=== PATIENT | male | born 1955 | race Caucasian/White ===

== ENCOUNTER 2017-05-02 08:22 | Emergency (ER) | payer BC, OTHER ==
[2017-05-02] MEDS ORDERED: Ondansetron HCl/PF 4 MG/2 ML Vial ONE (09:07)
[2017-05-02 09:33] LABS: #Eosinphils 0.2 thou/uL (0.0-0.7); #Lymphocytes 1.6 thou/uL (1.20-3.40); #Monocytes 0.6 thou/uL (0.11-0.59); #Neutrophils 5.1 thou/uL (1.40-6.50); %Basophils 0.5 % (0.0-1.0); %Eosinophils 2.8 % (0.0-10.0); %Lymphocytes 21.1 % (21.0-51.0); %Monocytes 7.3 % (0.0-10.0); Hematocrit 47.1 % (42.0-52.0); Mean Platelet Volume 8.4 fL (7.4-10.4); Red Blood Cell (RBC) Count 5.36 mill/uL (4.70-6.10); White Blood Cell (WBC) Count 7.5 thou/uL (4.8-10.8)
[2017-05-02 09:47] LABS: ALT (SGPT) 31 U/L (8-55); AST (SGOT) 19 U/L (5-34); Alkaline Phosphatase 126 U/L (40-150); Anion Gap 10 mmol/L (10-20); BUN (Urea Nitrogen) 13 mg/dL (8.4-25.7); Bilirubin, Total 1.1 mg/dL (0.2-1.2); CK (CPK) 131 U/L (30-200); Calc. Creatinine Clearance 0 mL/min (70-130); Calcium 9.4 mg/dL (7.8-10.44); Carbon Dioxide 27 mmol/L (22-29); Chloride 103 mmol/L (98-107); Estimated GFR-MDRD Greater than 90; Globulin 2.9 g/dL (2.4-3.5); Lipase 24 U/L (8-78); Magnesium 2.2 mg/dL (1.6-2.6)
[2017-05-02 09:50] LABS: Troponin I Less than 0.010 ng/mL (< 0.028)
[2017-05-02 10:16] LABS: Bilirubin Negative (Negative); Blood, Urine Negative (Negative); Glucose, Urine (Dipstick) Negative (Negative); Ketone, Urine Negative (Negative); Nitrite Negative (Negative); Protein, Urine (Dipstick) Negative (Neg-Trace)
[2017-05-02 10:24] LABS: Bacteria/HPF None Seen HPF (None Seen); Hyaline Casts/LPF 0-3 HYALINE CAST LPF (0-3 Hyaline); RBC/HPF 0-3 HPF (0-3); Squamous Epithelial 0-3 HPF (0-3); WBC/HPF 0-3 HPF (0-3)
--- NOTE | 2017-05-02 10:28 | RAD ---
PORTABLE AP CHEST: Date: 05-02-17 History: Weakness, high blood pressure. Comparison: 08-15-16 FINDINGS: Cardiac silhouette is magnified by projection. Pulmonary vasculature is within normal limits. Lungs are clear. There has been no interval change from prior study. IMPRESSION: No acute cardiopulmonary process. POS: [facility]
== END 2017-05-02 11:34 | disposition home or self-care (01) ==
LOC: ERS 08:22
DX: I10 Essential (primary) hypertension (principal); E11.9 Type 2 diabetes mellitus without complications; I25.2 Old myocardial infarction; Z79.82 Long term (current) use of aspirin; Z79.899 Other long term (current) drug therapy
CPT/HCPCS: 36416; 71010; 80053; 81003; 81015; 82550; 82553; 83690; 83735; 83880; 84443; 84484; 85025; 93005; 96374; J2405

== ENCOUNTER 2017-10-02 20:01 | Observation (INO) | payer BC ==
[2017-10-02 20:39] LABS: #Eosinphils 0.4 thou/uL (0.0-0.7); #Lymphocytes 2.2 thou/uL (1.20-3.40); #Monocytes 0.7 thou/uL (0.11-0.59); #Neutrophils 5.3 thou/uL (1.40-6.50); %Basophils 0.4 % (0.0-1.0); %Eosinophils 4.1 % (0.0-10.0); %Lymphocytes 25.5 % (21.0-51.0); %Monocytes 8.5 % (0.0-10.0); %Neutrophils 61.5 % (42.0-75.0); Hemoglobin 14.9 g/dL (14.0-18.0); Mean Corpuscular HGB CONC 33.6 g/dL (32.0-36.0); Mean Corpuscular Hemoglobin 28.8 pg (27.0-31.0); Mean Corpuscular Volume 85.7 fl (80.0-94.0); Mean Platelet Volume 7.6 fL (7.4-10.4); Platelet Count 166 thou/uL (130-400); RBC Distribution Width 13.4 % (11.5-14.5); Red Blood Cell (RBC) Count 5.16 mill/uL (4.70-6.10); White Blood Cell (WBC) Count 8.5 thou/uL (4.8-10.8)
[2017-10-02 21:02] LABS: ALT (SGPT) 31 U/L (8-55); AST (SGOT) 18 U/L (5-34); Albumin 4.2 g/dL (3.5-5.0); Alkaline Phosphatase 123 U/L (40-150); Anion Gap 12 mmol/L (10-20); BUN (Urea Nitrogen) 16 mg/dL (8.4-25.7); Bilirubin, Total 1.1 mg/dL (0.2-1.2); CK (CPK) 88 U/L (30-200); Calc. Creatinine Clearance 0 mL/min (70-130); Calcium 9.3 mg/dL (7.8-10.44); Carbon Dioxide 26 mmol/L (22-29); Chloride 104 mmol/L (98-107); Estimated GFR-MDRD Greater than 90; Globulin 2.6 g/dL (2.4-3.5); Glucose 102 mg/dL (70-105); Lipase 32 U/L (8-78); Potassium 4.1 mmol/L (3.5-5.1); Protein, Total 6.8 g/dL (6.0-8.3); Sodium 138 mmol/L (136-145)
[2017-10-02 21:03] LABS: Troponin I Less than 0.010 ng/mL (< 0.028)
--- NOTE | 2017-10-02 21:54 | RAD ---
RADIOGRAPH CHEST 1 VIEW: HISTORY: 62-year-old male with acute chest pain. FINDINGS: There are no air space densities, pulmonary edema, pneumothorax, or cardiomegaly. The lateral costop hrenic angles are sharp. IMPRESSION: No acute cardiopulmonary findings. rg POS: [facility]
[2017-10-02 23:39] LABS: Troponin I Less than 0.010 ng/mL (< 0.028)
[2017-10-03 01:10] VITALS: BMI 42.0
[2017-10-03 02:42] LABS: Troponin I Less than 0.010 ng/mL (< 0.028)
[2017-10-03] MEDS: Sodium Chloride 0.9% 1,000 ML IV SCH ×2 (05:19→05:45)
[2017-10-03 06:06] LABS: #Eosinphils 0.4 thou/uL (0.0-0.7); #Lymphocytes 1.7 thou/uL (1.20-3.40); #Monocytes 0.6 thou/uL (0.11-0.59); #Neutrophils 3.4 thou/uL (1.40-6.50); %Basophils 0.6 % (0.0-1.0); %Eosinophils 5.9 % (0.0-10.0); %Lymphocytes 28.2 % (21.0-51.0); %Monocytes 9.5 % (0.0-10.0); %Neutrophils 55.8 % (42.0-75.0); Hemoglobin 14.4 g/dL (14.0-18.0); Mean Corpuscular HGB CONC 32.1 g/dL (32.0-36.0); Mean Corpuscular Hemoglobin 27.5 pg (27.0-31.0); Mean Corpuscular Volume 85.6 fl (80.0-94.0); Mean Platelet Volume 7.6 fL (7.4-10.4); Platelet Count 151 thou/uL (130-400); RBC Distribution Width 13.4 % (11.5-14.5); Red Blood Cell (RBC) Count 5.26 mill/uL (4.70-6.10); White Blood Cell (WBC) Count 6.1 thou/uL (4.8-10.8)
[2017-10-03 06:23] LABS: Anion Gap 11 mmol/L (10-20); BUN (Urea Nitrogen) 15 mg/dL (8.4-25.7); Calc. Creatinine Clearance 202 mL/min (70-130); Calcium 8.8 mg/dL (7.8-10.44); Carbon Dioxide 25 mmol/L (22-29); Cardiac Risk 4.8 (Less than 4.5); Chloride 105 mmol/L (98-107); Cholesterol 140 mg/dl (< 200 Desired); Estimated GFR-MDRD Greater than 90; Glucose 132 mg/dL (70-105); HDL Cholesterol 29 mg/dL (>60 Neg Risk); LDL Cholesterol, Calculated 65 mg/dL; Potassium 4.1 mmol/L (3.5-5.1); Sodium 137 mmol/L (136-145); Triglycerides 230 mg/dL (Less than 150)
--- NOTE | 2017-10-03 08:36 | HP ---
PRIMARY CARE PHYSICIAN: Dr. Salbador Varner DRIP PUMPER: Dr. Godinez CHIEF COMPLAINT: Chest pain. HISTORY OF PRESENT ILLNESS: This is a 70-year-old male with a known history of coronary artery disease, type 2 diabetes, hyperlipidemia, obesity who comes in with a chief complaint of centralized chest pain, mostly as chest pressure, substernally accompanied by nausea. This occurred twice, 20 minutes on the day prior to admission and an hour on the day of admission. At the time of my evaluation, the patient is currently chest pain free and denies any nausea. He states that he has had similar episodes in the past that were associated with coronary artery disease. REVIEW OF SYSTEMS: As per HPI. CONSTITUTIONAL: No recent fevers, chills, significant weight loss or gain that the patient is aware of. HEENT: No new headaches, dizziness or lightheadedness either currently nor with the episode of chest pain and nausea. CARDIOVASCULAR: Please see the HPI as above. The patient describes a substernal chest pressure, nonradiating. No left-sided arm numbness or tingling. No episodes of diaphoresis, but it is accompanied by nausea. He did not otherwise have isolated chest pain without nausea or isolated nausea without chest pain. RESPIRATORY: No recent cough, congestion, sinusitis, postnasal drip or ear pain. GASTROINTESTINAL: Nausea as above, otherwise no emesis. Denies any diarrhea or constipation issues or abdominal pain. GENITOURINARY: Denies any recent issues with dysuria, change in urinary frequency, quantity quality or odor. MUSCULOSKELETAL: Denies any new arthralgias or myalgias or lower extremity swelling. The remainder of review of systems otherwise negative. PAST MEDICAL HISTORY: 1. As per above, significant for coronary artery disease. 2. Type 2 diabetes. 3. Hyperlipidemia. 4. Obesity. 5. Status post percutaneous coronary intervention. 6. Status post tonsillectomy. HOME MEDICATIONS: Aspirin 81 mg p.o. daily, atorvastatin 80 mg p.o. q.p.m., buspirone 10 mg p.o. b.i.d., Valsartan 320 mg p.o. daily. Metoprolol tartrate 50 mg p.o. b.i.d. Isosorbide mononitrate 30 mg p.o. daily, amlodipine 5 mg p.o. daily, clopidogrel bisulfate 75 mg p.o. daily, metformin 1000 mg p.o. b.i.d., Omeprazole 20 mg p.o. daily, nitroglycerin 0.4 mg sublingual p.r.n., Meloxicam 7.5 mg p.o. daily, furosemide 20 mg p.o. daily, Dexilant 60 mg p.o. daily. ALLERGIES: No known drug allergies. FAMILY HISTORY: The patient endorses a family history of coronary artery disease and hypertension. SOCIAL HISTORY: The patient denies any active tobacco, illicit drug use or alcohol use. The patient endorses he wishes to be full code at this point in time. He does not designated medical decision maker at this point in time if he is unable to make his own medical decisions. PHYSICAL EXAMINATION: VITAL SIGNS: Temperature of 97.9, heart rate is 60, respirations 16, satting 100% on room air with blood pressure 151/82. GENERAL: The patient is awake, alert, oriented x3, reasonable historian as outlined above and provides a history as described above, lying in the hospital bed. HEENT: Normocephalic, atraumatic. Equal ocular motions are intact. Moist mucous membranes. CARDIOVASCULAR: S1, S2, soft heart sounds, pulses 2+ bilateral upper extremities, trace to 1+ bilateral lower extremity pitting pedal edema. RESPIRATORY: Reasonable air movement. No wheezes, rales or rhonchi, but clear to auscultation bilaterally. ABDOMEN: Positive bowel sounds. ABDOMEN: Soft, nontender to palpation. NEUROLOGIC: Able to move all 4 extremities independently and self reposition in the bed without difficulty or assistance. LABORATORY DATA AND IMAGING: WBC 8.5, hemoglobin 14.9, hematocrit 44.3, platelets 166. Sodium 138, potassium 4.1, chloride 104, bicarbonate 26, BUN 16 , creatinine 0.73, glucose 102, calcium 9.3, total bilirubin 1.1, AST 18, ALT 31 , alkaline phosphatase 123. Creatinine kinase 88, troponin less than 0.01 x2. Serum protein 6.8, albumin 4.2, lipase 32. 10/02/2017 - Chest x-ray - Impression: "No acute cardiopulmonary findings." ASSESSMENT AND PLAN: 1. This is a 62-year-old male with a known history of coronary artery disease, hypertension, hyperlipidemia, obesity, and type 2 diabetes who presents with a chief complaint of chest pain. We will maintain the patient on telemetry, serial troponins. I appreciate Cardiology consultation. We will keep the patient n.p.o. He has significant risk factors and a personal history of coronary artery disease, which raises his pretest probability of having occlusive coronary artery disease at this point in time. We will resume the patient on medical management as per his home medications. Obtain echocardiogram. 2. Diet: N.p.o. 3. Activity: As tolerated. 4. DVT prophylaxis with enoxaparin. 5. Hypertension, stable. Continue home regimen. 6. Hyperlipidemia, stable. Continue home regimen. 7. Type 2 diabetes, hold home anti-hyperglycemic regimen and utilize sliding scale insulin as the patient has n.p.o. status and will continue to have variable p.o. status. May resume his home regimen once he is back on his home baseline diet. Admit the patient to observation status to telemetry. Thank you for asking me care for the patient. With questions or concerns, please contact me at [facility]. MIMI
[2017-10-03] MEDS: Valsartan 80 MG TAB PO SCH (12:08)
[2017-10-03] MEDS: busPIRone HCl 10 MG TAB PO SCH ×2 (12:08→20:33)
[2017-10-03] MEDS: Heparin 5,000 UNITS/ML VIAL SC SCH ×3 (16:10→20:34)
[2017-10-03] MEDS: Famotidine 40 MG/4 ML VIAL SLOW IVP SCH ×2 (16:11→20:34)
[2017-10-03] MEDS: Metoprolol Tartrate 50 MG TAB PO SCH ×2 (16:12→20:34)
--- NOTE | 2017-10-03 18:38 | PDOC.PN ---
- Subjective Encounter Start Date: 10/03/17 Encounter Start Time: 18:30 Subjective: f/u for CP, CAD and cardiac w/u. Serial troponins negative and Tele/ Ekg -: negative for acute process. No current sx. - Objective Resuscitation Status: Resuscitation Status FULL:Full Resuscitation MAR Reviewed: Yes Vital Signs & Weight: Vital Signs (12 hours) Temp Pulse Resp BP Pulse Ox 10/03/17 14:38 97.8 F 67 16 149/80 H 98 10/03/17 11:22 97.3 F L 70 18 183/93 H 98 10/03/17 07:45 97.4 F L 64 18 10/03/17 07:31 97.4 F L 64 18 144/86 H 98 10/03/17 06:52 100 Weight Weight 276 lb 11.2 oz I&O: 10/02/17 10/03/17 10/04/17 06:59 06:59 06:59 Intake Total 120 Output Total 300 725 Balance -180 -725 Result Diagrams: 10/03/17 05:40 10/03/17 05:41 Additional Labs: Laboratory Tests 10/02/17 10/02/17 10/03/17 20:20 22:50 02:04 Troponin I Less than 0.010 Less than 0.010 Less than 0.010 Triglycerides Cholesterol LDL Cholesterol, Calc HDL Cholesterol 10/03/17 05:41 Troponin I Triglycerides 230 H Cholesterol 140 LDL Cholesterol, Calc 65 HDL Cholesterol 29 Radiology Reviewed by me: Yes (PCXR - neg) EKG Reviewed by me: Yes (Tele - SR) Phys Exam - Physical Examination Constitutional: NAD HEENT: PERRLA, oral pharynx no lesions Neck: no JVD, supple Respiratory: no wheezing, clear to auscultation bilateral Cardiovascular: RRR Gastrointestinal: soft, non-tender, no distention, positive bowel sounds Musculoskeletal: no edema, pulses present Neurological: normal sensation, moves all 4 limbs Psychiatric: A&O x 3 Skin: normal turgor, cap refill <2 seconds Dx/Plan (1) Chest pain Code(s): R07.9 - CHEST PAIN, UNSPECIFIED Status: Acute Comment: Continue ASA 81mg daily, Lipitor and Metoprolol, plan for DESK DIRECTOR in am (2) DM II (diabetes mellitus, type II), controlled Code(s): E11.9 - TYPE 2 DIABETES MELLITUS WITHOUT COMPLICATIONS Status: Chronic Comment: ISS, resume Metformin after DESK DIRECTOR, serial accuchecks (3) Dyslipidemia Code(s): E78.5 - HYPERLIPIDEMIA, UNSPECIFIED Status: Chronic Comment: Continue Lipitor (4) CAD (coronary artery disease) Code(s): I25.10 - ATHSCL HEART DISEASE OF [place] CORONARY ARTERY W/O ANG PCTRS Status: Chronic Qualifiers: Coronary Disease-Associated Artery/Lesion type: [place] artery Comment: s/p PCI 2013, await results of DESK DIRECTOR (5) Morbid obesity with BMI of 40.0-44.9, adult Code(s): E66.01 - MORBID (SEVERE) OBESITY DUE TO EXCESS CALORIES; Z68.41 - BODY MASS INDEX (BMI) 40.0-44.9, ADULT Status: Chronic Comment: Dietary mgmt - Plan out of bed/ambulate, DVT proph w/SCDs Stable overall -: DESK DIRECTOR planned for 10/04/17 -: Continue ASA and Lipitor -: Continue Metoprolol -: 2D echo pending * .
--- NOTE | 2017-10-03 18:42 | CON ---
DATE OF SERVICE: 10/03/2017 REASON FOR CONSULTATION: Chest pain. HISTORY OF PRESENT ILLNESS: Mr. Castillo is a pleasant 62-year-old white gentleman who comes to the hospital for chest pain. He is very well known to myself. He presented originally in 2013 for an inferior LA. He had an occluded mid RCA, which was opened up and drug-eluting stent was placed. He also had balloon angioplasty of the distal RPDA that seem much smaller than what it was later on. He continued to have chest pain a few months later and he was brought back to the catheterization lab where he was found to have just mild in-stent restenosis of the mid RCA stent, but there was severe disease in the RPDA at the place where angioplasty had been done. He received a 2.5 drug- eluting stent in that area with good results. He did well otherwise. He has had several episodes of chest pain since, the last one was about a year ago. He had completely negative troponins. We put him on some antianginal and he has been following up in the office since with no major issues. He states that yesterday he was having a nap and he was woken up from the nap by chest pain, it lasts for about 20 minutes, felt like tightness in the midsternal area. Nothing like what he felt before with his LA. He had a second episode the next day at work, which was Monday. He had a chest pain that lasted for about an hour at that time, so he decided to come in for evaluation. So far, his troponins have been negative. He has been pain free throughout his hospitalization. PAST MEDICAL HISTORY: 1. Coronary artery disease as above. 2. Type 2 diabetes. 3. Hyperlipidemia. 4. Obesity. PAST SURGICAL HISTORY: 1. Status post percutaneous coronary intervention as above. 2. Tonsillectomy. OUTPATIENT MEDICATIONS: Include, 1. Aspirin. 2. Atorvastatin 80 mg q.p.m. 3. BuSpar 10 mg b.i.d. 4. Valsartan 320 mg a day. 5. Metoprolol tartrate 50 mg p.o. b.i.d. 6. Imdur 30 mg a day. 7. Amlodipine 5 mg a day. 8. Clopidogrel 75 mg a day. 9. Metformin 1000 mg p.o. b.i.d. 10. Omeprazole 20 mg a day. 11. Nitroglycerin sublingual. 12. Meloxicam. 13. Furosemide 20 mg a day. 14. Dexilant 60 mg a day. ALLERGIES: No known drug allergies. FAMILY HISTORY: Positive for early coronary artery disease. SOCIAL HISTORY: No alcohol, tobacco or drugs. 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 PHYSICAL EXAMINATION: VITAL SIGNS: Temperature 97.8, pulse 67, respiration rate 16, satting 98% on room air, blood pressure 149/80. GENERAL: Awake, alert, oriented x3, in no distress. HEENT: Normocephalic, atraumatic. NECK: Supple. LUNGS: Lungs are clear, distant. CARDIOVASCULAR: S1, S2, no S3 or S4, no murmurs, no rubs. ABDOMEN: Soft. Positive bowel sounds. EXTREMITIES: No edema. SKIN: Warm and dry. LABORATORY WORK: Reviewed. CBC is unremarkable. Chemistry is unremarkable. Troponins were negative x3. Triglycerides of 230, cholesterol 140, LDL of 65, HDL of 29. Lipase was normal. EKG was reviewed, no ischemic changes. ASSESSMENT AND PLAN: 1. Chest pain: I gave him the choice of repeating a heart catheterization versus just doing a stress test. He would prefer doing a stress test to see if he risk stratifies to a higher risk for heart catheterization. He will plan on keeping him n.p.o. post-midnight and doing a nuclear SPECT tomorrow. Depending on the findings, we will decide how to further risk stratify. 2. Hypertension: Continue home regimen for now. Thank you for letting us participate in the care of your patient. We will follow. MIMI
[2017-10-03] MEDS: Atorvastatin Calcium 40 MG TAB PO SCH (20:33)
[2017-10-04] MEDS: Sodium Chloride 0.9% 1,000 ML IV SCH (02:05)
[2017-10-04] MEDS ORDERED: Nitroglycerin 0.4 MG TAB (25 Tab Bottle) ONE (02:07)
[2017-10-04] MEDS: busPIRone HCl 10 MG TAB PO SCH ×2 (11:44→20:40)
[2017-10-04] MEDS: Valsartan 80 MG TAB PO SCH (11:44)
[2017-10-04] MEDS: Metoprolol Tartrate 50 MG TAB PO SCH ×2 (11:44→20:40)
[2017-10-04] MEDS: Famotidine 40 MG/4 ML VIAL SLOW IVP SCH ×2 (11:45→20:40)
[2017-10-04] MEDS: Heparin 5,000 UNITS/ML VIAL SC SCH ×3 (11:45→20:41)
--- NOTE | 2017-10-04 17:49 | PDOC.CTH ---
Cardiology Progress Note - Subjective He had an episode of chest pain last night. He had his first half of his MPI this morning. - Objective Vital Signs Temp Pulse Resp BP BP Pulse Ox 10/04/17 16:17 98.4 F 67 18 148/82 H 100 10/04/17 07:57 97.3 F L 66 16 158/80 H 99 10/04/17 07:50 97.7 F 73 20 Weight 272 lb 12.8 oz 10/03/17 10/04/17 10/05/17 06:59 06:59 06:59 Intake Total 120 1557 Output Total 300 1675 Balance -180 -118 - Physical Examination General/Neuro: alert & oriented x3, NAD Neck: no JVD present Lungs: CTA, unlabored respirations Heart: RRR Abdomen: NT/ND Extremities: + edema B (trace) - Telemetry Telemetry Rhythm: NSR - Labs Result Diagrams: 10/03/17 05:40 10/03/17 05:41 Troponin/CKMB CK-MB (CK-2) 1.0 ng/mL (0-6.6) 10/02/17 20:20 Troponin I Less than 0.010 ng/mL (< 0.028) 10/03/17 02:04 - Assessment/Plan 1. Chest pain 2. CAD, s/p PCI to RCA and RPDA in the past. 3. HTN 4. Diabetes type II 5. Obesity. PLAN: - Await results of Nuclear MPI.
--- NOTE | 2017-10-04 18:47 | PDOC.PN ---
- Subjective Encounter Start Date: 10/04/17 Encounter Start Time: 18:35 Subjective: f/u for CP, CAD s/p PCI RCA currently on 2-day nuclear POWER TRUCK DRIVER. -: No current CP, SOB. Awaiting nuclear imaging in am. - Objective Resuscitation Status: Resuscitation Status FULL:Full Resuscitation MAR Reviewed: Yes Vital Signs & Weight: Vital Signs (12 hours) Temp Pulse Resp BP BP Pulse Ox 10/04/17 16:17 98.4 F 67 18 148/82 H 100 10/04/17 07:57 97.3 F L 66 16 158/80 H 99 10/04/17 07:50 97.7 F 73 20 Weight Weight 272 lb 12.8 oz I&O: 10/03/17 10/04/17 10/05/17 06:59 06:59 06:59 Intake Total 120 1557 800 Output Total 300 1675 1100 Balance -180 -118 -300 Result Diagrams: 10/03/17 05:40 10/03/17 05:41 Radiology Reviewed by me: Yes (Echo - EF 60-65%, Grade I/III diast dysfxn) EKG Reviewed by me: Yes (Tele - SR 60's) Phys Exam - Physical Examination Constitutional: NAD HEENT: PERRLA, oral pharynx no lesions Neck: no JVD, supple Respiratory: no wheezing, clear to auscultation bilateral Cardiovascular: RRR Gastrointestinal: soft, non-tender, no distention, positive bowel sounds mild LE edema Musculoskeletal: pulses present Neurological: normal sensation, moves all 4 limbs Psychiatric: A&O x 3 Skin: normal turgor, cap refill <2 seconds Dx/Plan (1) Chest pain Code(s): R07.9 - CHEST PAIN, UNSPECIFIED Status: Acute Comment: Continue ASA 81mg daily, Lipitor and Metoprolol, 2-day Cardiolite pending (2) DM II (diabetes mellitus, type II), controlled Code(s): E11.9 - TYPE 2 DIABETES MELLITUS WITHOUT COMPLICATIONS Status: Chronic Comment: ISS, resume Metformin after POWER TRUCK DRIVER, serial accuchecks (3) Dyslipidemia Code(s): E78.5 - HYPERLIPIDEMIA, UNSPECIFIED Status: Chronic Comment: Continue Lipitor (4) CAD (coronary artery disease) Code(s): I25.10 - ATHSCL HEART DISEASE OF [place] CORONARY ARTERY W/O ANG PCTRS Status: Chronic Qualifiers: Coronary Disease-Associated Artery/Lesion type: [place] artery Comment: s/p PCI 2013, await results of POWER TRUCK DRIVER (5) Morbid obesity with BMI of 40.0-44.9, adult Code(s): E66.01 - MORBID (SEVERE) OBESITY DUE TO EXCESS CALORIES; Z68.41 - BODY MASS INDEX (BMI) 40.0-44.9, ADULT Status: Chronic Comment: Dietary mgmt - Plan out of bed/ambulate, DVT proph w/SCDs Stable overall -: Continue ASA 81mg daily -: Continue Lipitor 80mg HS -: Await nuclear imaging for 2-day POWER TRUCK DRIVER protocol -: Saline lock IVF * Likely home 10/05/17
[2017-10-04] MEDS: Atorvastatin Calcium 40 MG TAB PO SCH (20:40)
[2017-10-05] MEDS: Valsartan 80 MG TAB PO SCH (09:32)
[2017-10-05] MEDS: Metoprolol Tartrate 50 MG TAB PO SCH (09:32)
[2017-10-05] MEDS: Heparin 5,000 UNITS/ML VIAL SC SCH (09:32)
[2017-10-05] MEDS: busPIRone HCl 10 MG TAB PO SCH (09:33)
[2017-10-05] MEDS: Famotidine 40 MG/4 ML VIAL SLOW IVP SCH (09:34)
--- NOTE | 2017-10-05 11:32 | NM ---
MYOCARDIAL PERFUSION SCAN WITH SPECT IMAGING: HISTORY: Chest pain. TECHNIQUE/FINDINGS: Examination is performed using 28.1 mCi 99m-technetium sestamibi on the stress and 33 mCi 99m-technet ium sestamibi on the resting images. This shows a fairly normal distribution of the radiopharmaceutic al. No signs of ischemia or scar. WALL MOTION: There is symmetric contractility to the ventricle. LEFT VENTRICULAR EJECTION FRACTION: The calculated left ventricular ejection fraction is 56%. IMPRESSION: Unremarkable myocardial perfusion scan. POS: [facility]
[2017-10-05 12:06] VITALS: BP 146/73; TEMP 98.2
--- NOTE | 2017-10-05 12:22 | DIS ---
DATE OF ADMISSION: 10/03/2017 DATE OF DISCHARGE: 10/05/2017 DISCHARGE DIAGNOSES: 1. Chest pain, non-cardiac. 2. Coronary artery disease, status post cardiac stent to the right RCA, chronic and stable. 3. Hyperlipidemia with primary hypertriglyceridemia. 4. Hypertension, stable. 5. Diabetes mellitus type 2 on oral hypoglycemics. 6. Morbid obesity. CONSULTATION: Dr. Godinez with Cardiology Service. PERTINENT LABORATORY AND X-RAY FINDINGS: Complete metabolic profile within normal limits. Troponin I negative x3. Total cholesterol 140, triglycerides 230, HDL 29 and LDL 65. CBC within normal limit s. Portable chest x-ray dated 10/02/2017 showed no acute cardiopulmonary process. A 2-D transthorac ic echocardiogram dated 10/04/2017 showed an ejection fraction of 60% to 65%. Grade I/III diastolic dysfunction. Cardiolite stress test dated 10/04/2017 with 2-day protocol showed no evidence of rever sible or fixed ischemia with calculated ejection fraction of 56%. HOSPITAL COURSE: The patient was observed on the telemetry unit after initially presenting with ches t pain in the context of known coronary artery disease, status post percutaneous coronary interventio n to the right RCA in 2014. The patient on medical management, presenting with chest pain with seria l troponin negative x3. The patient proceeded with Cardiolite stress testing, 2-day protocol showing no evidence of reversible or fixed ischemia with calculated ejection fraction of 56%. The patient w as evaluated by the Cardiology service with recommendations for nuclear stress testing as the patient opted not to pursue a repeat cardiac catheterization. Telemetry monitoring showed a sinus mechanism without evidence of acute arrhythmia or dysrhythmia, and patient remained clinically stable througho ut the hospital course. On the day of discharge, the patient ambulating without assistance or diffic ulty, tolerating regular oral intake, voiding appropriately with physical exam showing lungs; clear t o auscultation bilaterally and cardiovascular exam showing normal S1 and S2. The patient overall cli nically stable and ready for discharge on 10/05/2017. DISCHARGE MEDICATIONS: 1. Amlodipine 5 mg one tab p.o. daily. 2. Enteric-coated aspirin 81 mg 1 tab p.o. daily. 3. Lipitor 80 mg p.o. at bedtime. 4. BuSpar 10 mg p.o. b.i.d. 5. Plavix 75 mg p.o. daily. 6. Isosorbide mononitrate 30 mg p.o. daily. 7. Metformin 1000 mg p.o. daily. 8. Metoprolol tartrate 50 mg p.o. b.i.d. 9. Nitroglycerin 0.4 mg sublingually q.5 minutes p.r.n. chest pain. 10. Valsartan 320 mg p.o. daily. FOLLOWUP: The patient may follow up with his primary care provider, Dr. Salbador Varner within 7 day s of discharge. The patient may also follow up with Dr. Godinez with [facility] Cardiology Service and to call his office for appointment time and date. CONDITION ON DISCHARGE: Stable. ACTIVITY: Ad kai. DIET: Heart healthy and ADA. CODE STATUS: FULL. DISPOSITION: Home on 10/05/2017.
--- NOTE | 2017-10-25 23:04 | STRESS ---
Acquisition Time: 2017-10-04 09:31:35 Total Exercise Time: 00:04:00 Test Indications: CHEST PAIN Medications: Protocol: ADENOSINE Max HR: 093 BPM 58% of Pred: 160 BPM Max BP: 152/076 mmHG Max Work Load: 1.0 METS RESTING ECG: NORMAL SINUS RHYTHM AT 65 BPM SYMPTOMS: FLUSHED NORMAL BP RESPONSE ECTOPY: NONE ECG STRESS: NO SIGNIFICANT CHANGES INTERPRETATION: NEGATIVE ECG/AWAIT NUCLEAR IMAGES FOR DEFINITIVE DIAGNOSIS Confirmed by Mook FAIRBANKS ([id number]) on 10/25/2017 11:04:08 PM Referred By: MD Sam RODRÍGUEZ Confirmed By:Mook FAIRBANKS
--- NOTE | 2017-11-09 15:04 | EKG ---
Test Reason : CHEST PAIN Blood Pressure : / mmHG Vent. Rate : 069 BPM Atrial Rate : 069 BPM P-R Int : 142 ms QRS Dur : 082 ms QT Int : 396 ms P-R-T Axes : 008 000 039 degrees QTc Int : 424 ms Normal sinus rhythm Normal ECG Confirmed by SHARON PIMENTEL ([id number]), film editor ANASTASIIA PATTON ([id number]) on 11/09/2017 3:03:48 PM Referred By: Confirmed By:SHARON PIMENTEL
== END 2017-10-05 13:32 | disposition home or self-care (01) ==
LOC: ERS 20:01 → 2SW 10-03 00:16
PROVIDERS: ADMIT Internal Medicine; ATTEND Internal Medicine
DX: R07.89 Other chest pain (principal); I25.10 Atherosclerotic heart disease of native coronary artery without angina pectoris; E78.5 Hyperlipidemia, unspecified; E78.1 Pure hyperglyceridemia; I10 Essential (primary) hypertension; I25.2 Old myocardial infarction; E11.9 Type 2 diabetes mellitus without complications; E66.01 Morbid (severe) obesity due to excess calories; Z68.41 Body mass index [BMI] 40.0-44.9, adult; Z79.84 Long term (current) use of oral hypoglycemic drugs; Z79.82 Long term (current) use of aspirin; Z79.02 Long term (current) use of antithrombotics/antiplatelets; Z79.899 Other long term (current) drug therapy; Z95.5 Presence of coronary angioplasty implant and graft; Z90.89 Acquired absence of other organs
CPT/HCPCS: 36415; 71045; 78452; 80048; 80053; 80061; 82553; 83690; 84484; 85025; 90471; 90732; 93005; 93017; 93306; 94760; 96361; 96374; 96376; A9500; G0009; G0378; J0153; J1644

== ENCOUNTER 2017-11-26 22:27 | Emergency (ER) | payer BC ==
[2017-11-26] MEDS ORDERED: Nitroglycerin 0.4 MG TAB (25 Tab Bottle) ONE (23:19)
--- NOTE | 2017-11-26 23:21 | RAD ---
AP VIEW CHEST: Date: 11/26/17 INDICATION: Chest pain. COMPARISON: Prior exam dated 10/02/17. IMPRESSION: No acute cardiopulmonary abnormality. The examination does not appear appreciably changed from the [facility] study. POS: [facility]
[2017-11-26 23:42] LABS: #Eosinphils 0.2 thou/uL (0.0-0.7); #Lymphocytes 0.9 thou/uL (1.20-3.40); #Monocytes 0.6 thou/uL (0.11-0.59); #Neutrophils 8.2 thou/uL (1.40-6.50); %Basophils 0.1 % (0.0-1.0); %Eosinophils 1.9 % (0.0-10.0); %Neutrophils 82.9 % (42.0-75.0); Hemoglobin 14.1 g/dL (14.0-18.0); Mean Corpuscular HGB CONC 33.7 g/dL (32.0-36.0); Mean Corpuscular Hemoglobin 29.7 pg (27.0-31.0); Mean Corpuscular Volume 88.1 fl (80.0-94.0); Mean Platelet Volume 8.3 fL (7.4-10.4); Platelet Count 133 thou/uL (130-400); RBC Distribution Width 13.1 % (11.5-14.5); Red Blood Cell (RBC) Count 4.73 mill/uL (4.70-6.10); White Blood Cell (WBC) Count 9.8 thou/uL (4.8-10.8)
[2017-11-26 23:57] LABS: ALT (SGPT) 30 U/L (8-55); AST (SGOT) 20 U/L (5-34); Alkaline Phosphatase 96 U/L (40-150); Anion Gap 12 mmol/L (10-20); BUN (Urea Nitrogen) 21 mg/dL (8.4-25.7); Calc. Creatinine Clearance 0 mL/min (70-130); Calcium 8.9 mg/dL (7.8-10.44); Carbon Dioxide 24 mmol/L (22-29); Chloride 109 mmol/L (98-107); Estimated GFR-MDRD Greater than 90; Globulin 2.2 g/dL (2.4-3.5); Glucose 112 mg/dL (70-105); Potassium 3.5 mmol/L (3.5-5.1); Protein, Total 6.2 g/dL (6.0-8.3); Sodium 141 mmol/L (136-145)
[2017-11-27] LABS: CKMB 1.2 ng/mL (0-6.6); Troponin I Less than 0.010 ng/mL (< 0.028)
[2017-11-27 02:46] LABS: Troponin I 0.021 ng/mL (< 0.028)
== END 2017-11-27 03:06 | disposition home or self-care (01) ==
LOC: ERS 22:27
DX: R07.9 Chest pain, unspecified (principal); R60.0 Localized edema; I25.2 Old myocardial infarction; I25.10 Atherosclerotic heart disease of native coronary artery without angina pectoris; E11.9 Type 2 diabetes mellitus without complications; I10 Essential (primary) hypertension; Z86.79 Personal history of other diseases of the circulatory system; Z79.82 Long term (current) use of aspirin; Z79.899 Other long term (current) drug therapy; Z79.84 Long term (current) use of oral hypoglycemic drugs
CPT/HCPCS: 36415; 71045; 80053; 82553; 83880; 84484; 85025; 93005; 94760; 96360; 96361

== ENCOUNTER 2018-04-03 09:31 | Emergency (ER) | payer BC ==
[2018-04-03] MEDS ORDERED: Nitroglycerin 0.4 MG TAB (25 Tab Bottle) ONE (09:51)
[2018-04-03 10:28] LABS: #Eosinphils 0.1 thou/uL (0.0-0.7); #Lymphocytes 1.3 thou/uL (1.20-3.40); #Monocytes 0.5 thou/uL (0.11-0.59); #Neutrophils 4.8 thou/uL (1.40-6.50); %Basophils 0.1 % (0.0-1.0); %Eosinophils 1.8 % (0.0-10.0); %Lymphocytes 19.4 % (21.0-51.0); %Monocytes 7.4 % (0.0-10.0); %Neutrophils 71.4 % (42.0-75.0); Hemoglobin 15.2 g/dL (14.0-18.0); Mean Corpuscular HGB CONC 33.2 g/dL (32.0-36.0); Mean Corpuscular Volume 87.4 fL (78.0-98.0); Mean Platelet Volume 8.1 fL (7.4-10.4); Platelet Count 168 thou/uL (130-400); Red Blood Cell (RBC) Count 5.23 mill/uL (4.70-6.10); White Blood Cell (WBC) Count 6.8 thou/uL (4.8-10.8)
[2018-04-03 10:51] LABS: ALT (SGPT) 26 U/L (8-55); AST (SGOT) 21 U/L (5-34); Albumin 4.2 g/dL (3.4-4.8); Alkaline Phosphatase 95 U/L (40-150); Anion Gap 12 mmol/L (10-20); BUN (Urea Nitrogen) 15 mg/dL (8.4-25.7); Bilirubin, Total 1.4 mg/dL (0.2-1.2); CK (CPK) 86 U/L (30-200); Calc. Creatinine Clearance 0 mL/min (70-130); Calcium 9.2 mg/dL (7.8-10.44); Carbon Dioxide 21 mmol/L (23-31); Chloride 108 mmol/L (98-107); Estimated GFR-MDRD Greater than 90; Globulin 2.5 g/dL (2.4-3.5); Glucose 110 mg/dL (80-115); Lipase 25 U/L (8-78); Protein, Total 6.7 g/dL (5.8-8.1); Sodium 137 mmol/L (136-145)
[2018-04-03 10:55] LABS: CKMB 1.3 ng/mL (0-6.6); Troponin I Less than 0.010 ng/mL (< 0.028)
--- NOTE | 2018-04-03 12:56 | RAD ---
PORTABLE AP CHEST: Date: 04/03/18 HISTORY: Chest pain. COMPARISON: 11/26/17. FINDINGS: Cardiac silhouette and pulmonary vasculature within normal limits. Lungs remain clear. There has been no interval change from prior study. IMPRESSION: No acute cardiopulmonary process. POS: [facility]
[2018-04-03] MEDS ORDERED: Lidocaine Viscous Sol 2% 15 ml UD Cup ONE (13:11)
[2018-04-03] MEDS ORDERED: Mag-Al 1200 mg/1200 mg/30 ML UDCUP ONE (13:11)
[2018-04-03 14:13] LABS: Troponin I Less than 0.010 ng/mL (< 0.028)
--- NOTE | 2018-04-07 13:22 | EKG ---
Test Reason : CHEST PAIN Blood Pressure : / mmHG Vent. Rate : 064 BPM Atrial Rate : 064 BPM P-R Int : 156 ms QRS Dur : 086 ms QT Int : 416 ms P-R-T Axes : 017 -06 014 degrees QTc Int : 429 ms Normal sinus rhythm Normal ECG Confirmed by ROBSON LEONE ([id number]), offline editor KYE ORONA ([id number]) on 04/07/2018 1:22:23 PM Referred By: Confirmed By:ROBSON LEONE
== END 2018-04-03 14:38 | disposition home or self-care (01) ==
LOC: ERS 09:31
DX: R07.2 Precordial pain (principal); I25.10 Atherosclerotic heart disease of native coronary artery without angina pectoris; I25.2 Old myocardial infarction; E11.9 Type 2 diabetes mellitus without complications; I10 Essential (primary) hypertension; Z79.899 Other long term (current) drug therapy; Z79.82 Long term (current) use of aspirin
CPT/HCPCS: 36415; 71045; 80053; 82553; 83690; 83880; 84484; 85025; 93005

== ENCOUNTER 2018-04-12 07:47 | Outpatient (CLI) | payer BC ==
--- NOTE | 2018-04-12 10:43 | CT ---
CT CHEST WITH IV CONTRAST: DATE: 04/12/18. PROVIDED CLINICAL HISTORY: Chest pain. FINDINGS: Left thyroid lobe hypodensity with associated calcifications at inferior pole, incompletely character ized. Vascular calcification and coronary stent material are seen. Heart, pericardium, and great vessels a ppear otherwise unremarkable. No evidence for thoracic lymph node enlargement. The airway appears patent and of normal caliber. The lungs are free of significant opacity. No pleural fluid or pneumothorax apparent. The osseous structures demonstrate no concerning osteoblastic or osteolytic lesions. IMPRESSION: 1. No evidence for an acute process. 2. Vascular calcification including coronary calcium. POS: [facility]
[2018-04-12] MEDS ORDERED: Iopamidol 370 76% 100 ML VIAL ONE (14:48)
== END 2018-04-12 07:48 | disposition home or self-care (01) ==
LOC: BICCT 07:47
PROVIDERS: ATTEND Internal Medicine Gastroenterology
DX: R07.9 Chest pain, unspecified (principal); I25.10 Atherosclerotic heart disease of native coronary artery without angina pectoris
CPT/HCPCS: 71260

== ENCOUNTER 2018-04-12 10:17 | Outpatient (CLI) | payer BC ==
--- NOTE | 2018-04-12 11:38 | ULT ---
RIGHT UPPER QUADRANT ULTRASOUND: Date: 04/12/18 HISTORY: Abdominal pain. FINDINGS: The liver demonstrates homogeneous echotexture without focal mass or intrahepatic ductal dilatation. No gallstones, gallbladder wall thickening, or pericholecystic fluid are seen. The common duct measur es 7.0 mm in diameter. Right kidney and visualized portions of the pancreas are unremarkable. No free fluid is seen in Morison's pouch. IMPRESSION: No significant abnormalities are identified. POS: [facility]
== END 2018-04-12 10:18 | disposition home or self-care (01) ==
LOC: ULT 10:17
PROVIDERS: ATTEND Internal Medicine Gastroenterology
DX: R07.9 Chest pain, unspecified (principal)
CPT/HCPCS: 71260; 76705

== ENCOUNTER 2018-10-20 11:52 | Emergency (ER) | payer BC ==
[2018-10-20] MEDS ORDERED: Fentanyl 100 MCG/2 ML VIAL ONE ×2 (12:11→14:30)
--- NOTE | 2018-10-20 13:10 | RAD ---
F2 views left forearm: 10/20/2018 COMPARISON: None HISTORY: Injury, trauma, fall, pain FINDINGS: Soft tissue swelling is seen on the lateral examination along the dorsal aspect of the prox imal forearm near the region of the mid/proximal left ulnar shaft. Question contusion in this region. No associated fracture seen. IMPRESSION: Soft tissue swelling noted with no evidence for acute fracture or dislocation.
--- NOTE | 2018-10-20 13:14 | RAD ---
FFrontal radiograph chest 4 views left RIBS: 10/20/2018 COMPARISON: Frontal radiograph chest 04/03/2018 HISTORY: Trauma FINDINGS: Frontal radiograph chest demonstrates mild increased interstitial density with no pneumotho rax, pleural fluid, focal consolidation, or alveolar edema. There are fracture deformities involving the posterior lateral aspect of the left fourth and fifth ri bs. Both fractures are mildly displaced. IMPRESSION: Displaced left-sided rib fractures as detailed above. No discrete pneumothorax. Findings could be fully assessed via CT if clinically warranted.
[2018-10-20] MEDS ORDERED: Morphine 4 MG/ML VIAL ONE (14:25)
[2018-10-20] MEDS ORDERED: ISOVUE-370 76%-LOCM 1 ML ONE (15:16)
--- NOTE | 2018-10-20 15:18 | CT ---
FCT thorax with contrast: 10/20/2018 HISTORY: 63-year-old male status post traumatic chest pain due to fall. FINDINGS: Fracture of anterolateral aspect of the left fourth rib with 25% shaft width displacement. Fracture o f anterolateral aspect of left fifth rib with essentially no displacement. Fracture of anterolateral aspect of left sixth rib with essentially no displacement. No pulmonary contusion, edema, or consolid ation. No pneumothorax. No thoracic aortic aneurysm or dissection. Substernal left thyroid nodule unc hanged compared to 04/12/2018. No mediastinal hematoma or lymphadenopathy. IMPRESSION: Acute, traumatic left rib fractures.
== END 2018-10-20 16:00 | disposition home or self-care (01) ==
LOC: ERS 11:52
DX: S22.42XA Multiple fractures of ribs, left side, initial encounter for closed fracture (principal); S50.12XA Contusion of left forearm, initial encounter; S50.312A Abrasion of left elbow, initial encounter; I25.2 Old myocardial infarction; I10 Essential (primary) hypertension; W01.0XXA Fall on same level from slipping, tripping and stumbling without subsequent striking against object, initial encounter
CPT/HCPCS: 71260; 96374; 96376; J2270; J3010; Q9966

== ENCOUNTER 2019-02-01 07:42 | Outpatient (CLI) | payer BC ==
--- NOTE | 2019-02-01 09:04 | MRI ---
MRI LEFT SHOULDER WITHOUT CONTRAST: HISTORY: M75.12, tear of left rotator cuff. COMPARISON: None. FINDINGS: BICEPS TENDON: Mild extraarticular tendinosis. Extensive intraarticular tendinosis and interstitial tearing. LABRUM: Tear throughout the superior, anterior, and inferior labrum. There is a tear of the axillary pouch inferior glenohumeral ligament anteriorly at the humeral attach ment. Middle glenohumeral ligament is intact. ROTATOR CUFF: Full-thickness full-width supraspinatus tendon tear from the footprint retracted to the mid humeral head with high-grade undersurface partial tearing of the anterior infraspinatus tendon . There is also a high-grade tear of the craniad fibers subscapularis. BONES: Type I acromion. There are erosive changes of the transverse humeral ligament insertion upon the greater trochanter. No contusion. No acute fracture. MUSCLES: No significant muscle atrophy. SOFT TISSUES: Moderate joint effusion with synovitis and some evidence for some retracting clot. IMPRESSION: 1. Full-thickness, full-width supraspinatus tendon tear from the footprint retracted to the mid darnell ral head. 2. High-grade tear of the superior, anterior, and inferior labrum. 3. Tear of the anterior inferior glenohumeral ligament at the humeral attachment, HAGL lesoin. 4. Moderate subacromial subdeltoid bursa effusion containing synovitis as well as some retracting he morrhage. 5. Moderate intraarticular biceps tendonosis and partial tearing. 6. High-grade undersurface partial tear of the anterior infraspinatus tendon. 7. A few bodies within the subacromial/subdeltoid bursa. POS: CET
== END 2019-02-01 07:43 | disposition home or self-care (01) ==
LOC: TBSIIMAG 07:42
PROVIDERS: ATTEND Orthopaedic Surgery
DX: M75.102 Unspecified rotator cuff tear or rupture of left shoulder, not specified as traumatic (principal); M75.82 Other shoulder lesions, left shoulder

== ENCOUNTER 2019-07-29 18:30 | Emergency (ER) | payer BC ==
[2019-07-29 20:29] LABS: #Basophils 0.1 thou/uL (0.0-0.2); #Eosinphils 0.2 thou/uL (0.0-0.7); #Lymphocytes 1.9 thou/uL (1.20-3.40); #Monocytes 0.7 thou/uL (0.11-0.59); #Neutrophils 5.5 thou/uL (1.40-6.50); %Basophils 1.1 % (0.0-1.0); %Eosinophils 2.7 % (0.0-10.0); %Lymphocytes 22.8 % (21.0-51.0); %Monocytes 8.8 % (0.0-10.0); %Neutrophils 64.6 % (42.0-75.0); Hemoglobin 14.1 g/dL (14.0-18.0); Mean Corpuscular HGB CONC 34.2 g/dL (32.0-36.0); Mean Corpuscular Hemoglobin 29.1 pg (27.0-31.0); Mean Corpuscular Volume 85.2 fL (78.0-98.0); Mean Platelet Volume 8.4 fL (7.4-10.4); Platelet Count 167 thou/uL (130-400); RBC Distribution Width 13.2 % (11.5-14.5); Red Blood Cell (RBC) Count 4.85 mill/uL (4.70-6.10); White Blood Cell (WBC) Count 8.4 thou/uL (4.8-10.8)
--- NOTE | 2019-07-29 20:36 | RAD ---
Chest one view HISTORY: Chest pain. COMPARISON: 04/03/2018. FINDINGS: Cardiac silhouette is magnified by projection. Pulmonary vasculature upper limits of normal . Mediastinum is midline. No confluent airspace consolidation or evidence of pneumothorax. IMPRESSION: Borderline pulmonary vascular congestion.
[2019-07-29 20:50] LABS: ALT (SGPT) 42 U/L (8-55); AST (SGOT) 23 U/L (5-34); Alkaline Phosphatase 110 U/L (40-110); Anion Gap 8 mmol/L (10-20); BUN (Urea Nitrogen) 13 mg/dL (8.4-25.7); Bilirubin, Total 0.9 mg/dL (0.2-1.2); Calc. Creatinine Clearance 0 mL/min (70-130); Calcium 8.9 mg/dL (7.8-10.44); Carbon Dioxide 29 mmol/L (23-31); Chloride 104 mmol/L (98-107); Estimated GFR-MDRD Greater than 90; Globulin 2.5 g/dL (2.4-3.5); Glucose 134 mg/dL (80-115); Potassium 3.4 mmol/L (3.5-5.1); Protein, Total 6.5 g/dL (5.8-8.1); Sodium 138 mmol/L (136-145)
[2019-07-29 21:07] LABS: Bacteria/HPF None Seen HPF (None Seen); Bilirubin Negative (Negative); Blood, Urine Negative (Negative); Clarity Clear (Clear); Glucose, Urine (Dipstick) Normal (Negative); Leukocyte 25 Leu/uL (Negative); Nitrite Negative (Negative); Protein, Urine (Dipstick) Negative (Neg-Trace); RBC/HPF 0-3 HPF (0-3); Squamous Epithelial 0-3 HPF (0-3); Urobilinogen Normal mg/dL (Less than 2); WBC/HPF 0-3 HPF (0-3)
== END 2019-07-29 21:37 | disposition home or self-care (01) ==
LOC: ERS 18:30
DX: I10 Essential (primary) hypertension (principal); I25.2 Old myocardial infarction; I25.10 Atherosclerotic heart disease of native coronary artery without angina pectoris; Z79.82 Long term (current) use of aspirin; Z79.899 Other long term (current) drug therapy
CPT/HCPCS: 36415; 71045; 80053; 81003; 81015; 83880; 84484; 85025; 93005

== ENCOUNTER 2022-02-17 14:32 | Outpatient (CLI) | payer BC | END 2022-02-17 14:33 | disposition home or self-care (01) | LOC: ULT 14:32 | PROVIDERS: ATTEND Internal Medicine Cardiovascular Disease | DX: E04.1 Nontoxic single thyroid nodule (principal); E07.89 Other specified disorders of thyroid | CPT/HCPCS: 76536 ==

== ENCOUNTER → 2022-03-17 | Day surgery (SDC) | payer BC ==
[2022-03-15 11:03] VITALS: BMI 41.0
[~2022-03-17] MED LIST: Lidocaine 1% MPF 2 ML VIAL ONE; Sodium Bicarbonate 2.5 MEQ/5 ML VIAL ONE
[2022-03-17 13:28] VITALS: BP 127/60; TEMP 97.7
== END | disposition home or self-care (01) ==
LOC: ULT 12:30
PROVIDERS: ATTEND Specialist
PROC: 0G9G3ZX Drainage of Left Thyroid Gland Lobe, Percutaneous Approach, Diagnostic (ICD-10-PCS; principal; 2022-03-17)
DX: E04.2 Nontoxic multinodular goiter (principal); Z79.02 Long term (current) use of antithrombotics/antiplatelets; Z79.82 Long term (current) use of aspirin; Z79.899 Other long term (current) drug therapy; Z88.5 Allergy status to narcotic agent
CPT/HCPCS: 10005; 88173; 88305

== ENCOUNTER 2022-03-28 20:01 | Inpatient (IN) | payer BC ==
[2022-03-28 21:44] LABS: #Eosinphils 0.2 thou/uL (0.0-0.7); #Lymphocytes 1.4 thou/uL (1.20-3.40); #Monocytes 0.6 thou/uL (0.11-0.59); #Neutrophils 4.2 thou/uL (1.40-6.50); %Eosinophils 2.4 % (0.0-10.0); %Lymphocytes 22.1 % (21.0-51.0); %Monocytes 9.6 % (0.0-10.0); %Neutrophils 65.9 % (42.0-75.0); Hemoglobin 13.4 g/dL (14.0-18.0); Mean Corpuscular HGB CONC 33.8 g/dL (32.0-36.0); Mean Corpuscular Hemoglobin 31.1 pg (27.0-31.0); Mean Corpuscular Volume 92.1 fL (78.0-98.0); Mean Platelet Volume 8.7 fL (7.4-10.4); Platelet Count 135 thou/uL (130-400); RBC Distribution Width 12.9 % (11.5-14.5); Red Blood Cell (RBC) Count 4.32 mill/uL (4.70-6.10); White Blood Cell (WBC) Count 6.4 thou/uL (4.8-10.8)
[2022-03-28 21:53] LABS: ALT (SGPT) 23 U/L (8-55); AST (SGOT) 19 U/L (5-34); Albumin 4.2 g/dL (3.4-4.8); Alkaline Phosphatase 99 U/L (40-110); Anion Gap 13 mmol/L (10-20); BUN (Urea Nitrogen) 13 mg/dL (8.4-25.7); Bilirubin, Total 1.9 mg/dL (0.2-1.2); Calc. Creatinine Clearance 0 mL/min (70-130); Carbon Dioxide 23 mmol/L (23-31); Chloride 106 mmol/L (98-107); Estimated GFR 100; Globulin 2.3 g/dL (2.4-3.5); Glucose 89 mg/dL (80-115); Lipase 18 U/L (8-78); Potassium 3.4 mmol/L (3.5-5.1); Protein, Total 6.5 g/dL (5.8-8.1); Sodium 139 mmol/L (136-145)
[2022-03-28] MEDS ORDERED: Aspirin Chewable 81 MG TAB ONE (22:24)
[2022-03-28] MEDS ORDERED: Dextrose 5% in Water 1,000 ML IV PRN (23:05)
[2022-03-28] MEDS ORDERED: Dextrose 50% Abboject 50 ML SYRINGE SLOW IVP PRN (23:05)
[2022-03-28] MEDS ORDERED: Zolpidem Tartrate 5 MG TAB PO PRN (23:05)
[2022-03-28] MEDS ORDERED: HYDROcodone/Acetaminophen 5/325 mg Tablet PO PRN (23:05)
[2022-03-28] MEDS ORDERED: Acetaminophen 325 MG TAB PO PRN (23:05)
[2022-03-28] MEDS ORDERED: HumaLOG 300 UNITS/3 ML VIAL SC PRN ×2 (23:05)
[2022-03-28] MEDS ORDERED: Furosemide 40 MG/4 ML VIAL SLOW IVP SCH (23:15)
[2022-03-28] MEDS ORDERED: Potassium Chloride 20 MEQ TAB PO SCH (23:15)
[2022-03-28] MEDS ORDERED: Aspirin 325 MG TAB PO SCH (23:15)
[2022-03-28 23:36] LABS: SARS-CoV-2 NAA Rapid Test Not Detected (NotDetected)
[2022-03-28] MEDS ORDERED: Furosemide 40 MG/4 ML VIAL ONE (23:57)
[2022-03-28] MEDS ORDERED: Potassium Chloride 20 MEQ TAB ONE (23:57)
[2022-03-29 00:29] LABS: Troponin I Less than 0.010 ng/mL (< 0.028)
[2022-03-29 03:04] LABS: #Eosinphils 0.2 thou/uL (0.0-0.7); #Lymphocytes 1.4 thou/uL (1.20-3.40); #Monocytes 0.6 thou/uL (0.11-0.59); #Neutrophils 2.6 thou/uL (1.40-6.50); %Basophils 0.7 % (0.0-1.0); %Eosinophils 3.5 % (0.0-10.0); %Lymphocytes 30.1 % (21.0-51.0); %Monocytes 11.6 % (0.0-10.0); %Neutrophils 54.1 % (42.0-75.0); Hemoglobin 13.5 g/dL (14.0-18.0); Mean Corpuscular HGB CONC 33.6 g/dL (32.0-36.0); Mean Corpuscular Hemoglobin 30.8 pg (27.0-31.0); Mean Corpuscular Volume 91.7 fL (78.0-98.0); Mean Platelet Volume 7.7 fL (7.4-10.4); Platelet Count 135 thou/uL (130-400); RBC Distribution Width 13.1 % (11.5-14.5); Red Blood Cell (RBC) Count 4.38 mill/uL (4.70-6.10); White Blood Cell (WBC) Count 4.8 thou/uL (4.8-10.8)
[2022-03-29 03:25] LABS: Troponin I Less than 0.010 ng/mL (< 0.028)
[2022-03-29 03:52] LABS: ALT (SGPT) 26 U/L (8-55); AST (SGOT) 21 U/L (5-34); Albumin 4.2 g/dL (3.4-4.8); Alkaline Phosphatase 101 U/L (40-110); Anion Gap 15 mmol/L (10-20); BUN (Urea Nitrogen) 14 mg/dL (8.4-25.7); Bilirubin, Total 1.8 mg/dL (0.2-1.2); Calc. Creatinine Clearance 0 mL/min (70-130); Calcium 8.8 mg/dL (7.8-10.44); Carbon Dioxide 23 mmol/L (23-31); Cardiac Risk 4.2 (Less than 4.5); Chloride 104 mmol/L (98-107); Cholesterol 113 mg/dl (< 200 Desired); Estimated GFR 100; Globulin 2.7 g/dL (2.4-3.5); Glucose 166 mg/dL (80-115); HDL Cholesterol 27 mg/dL (>60 Neg Risk); LDL Cholesterol, Calculated 47 mg/dL; Potassium 3.5 mmol/L (3.5-5.1); Protein, Total 6.9 g/dL (5.8-8.1); Sodium 138 mmol/L (136-145); Triglycerides 194 mg/dL (Less than 150)
[2022-03-29] MEDS: Nitroglycerin 2% Ointment 1 INCH/1 GM Packet TOP SCH ×3 (06:05→20:46)
[2022-03-29 08:17] LABS: Hemoglobin A1c 6.1 % (4.0-6.0)
[2022-03-29] MEDS ORDERED: Clopidogrel Bisulfate 75 MG TAB PO SCH (09:00)
[2022-03-29] MEDS ORDERED: Furosemide 40 MG/4 ML VIAL SLOW IVP SCH (09:00)
[2022-03-29] MEDS ORDERED: Enoxaparin Sodium 40 MG/0.4 ML SYRINGE ONE (09:08)
[2022-03-29] MEDS ORDERED: Aspirin Chewable 81 MG TAB ONE (09:08)
[2022-03-29] MEDS: Enoxaparin Sodium 40 MG/0.4 ML SYRINGE SC SCH (09:16)
[2022-03-29] MEDS: Icosapent Ethyl 1 GM CAPSULE PO SCH ×2 (09:18→20:40)
[2022-03-29] MEDS: Aspirin Chewable 81 MG TAB PO SCH (09:19)
[2022-03-29 11:58] VITALS: BMI 41.5
[2022-03-29] MEDS ORDERED: Amlodipine 10 MG TAB PO SCH (12:45)
[2022-03-30 05:10] LABS: #Eosinphils 0.1 thou/uL (0.0-0.7); #Lymphocytes 1.1 thou/uL (1.20-3.40); #Monocytes 0.5 thou/uL (0.11-0.59); #Neutrophils 3.6 thou/uL (1.40-6.50); %Basophils 0.3 % (0.0-1.0); %Eosinophils 2.1 % (0.0-10.0); %Monocytes 9.3 % (0.0-10.0); %Neutrophils 67.4 % (42.0-75.0); Hemoglobin 13.5 g/dL (14.0-18.0); Mean Corpuscular HGB CONC 33.2 g/dL (32.0-36.0); Mean Corpuscular Hemoglobin 30.6 pg (27.0-31.0); Mean Corpuscular Volume 92.2 fL (78.0-98.0); Mean Platelet Volume 7.8 fL (7.4-10.4); Platelet Count 128 thou/uL (130-400); Red Blood Cell (RBC) Count 4.41 mill/uL (4.70-6.10); White Blood Cell (WBC) Count 5.4 thou/uL (4.8-10.8)
[2022-03-30 05:39] LABS: ALT (SGPT) 25 U/L (8-55); AST (SGOT) 19 U/L (5-34); Alkaline Phosphatase 100 U/L (40-110); Anion Gap 12 mmol/L (10-20); BUN (Urea Nitrogen) 13 mg/dL (8.4-25.7); Bilirubin, Direct 0.5 mg/dL (0.1-0.3); Bilirubin, Total 1.6 mg/dL (0.2-1.2); Calc. Creatinine Clearance 179 mL/min (70-130); Calcium 8.8 mg/dL (7.8-10.44); Carbon Dioxide 25 mmol/L (23-31); Chloride 106 mmol/L (98-107); Estimated GFR 101; Glucose 112 mg/dL (80-115); Magnesium 2.1 mg/dL (1.6-2.6); Potassium 3.9 mmol/L (3.5-5.1); Protein, Total 6.4 g/dL (5.8-8.1); Sodium 139 mmol/L (136-145)
[2022-03-30] MEDS: Nitroglycerin 2% Ointment 1 INCH/1 GM Packet TOP SCH ×2 (06:01→13:42)
[2022-03-30] MEDS ORDERED: Furosemide 20 MG TAB PO PRN (07:19)
[2022-03-30] MEDS: Icosapent Ethyl 1 GM CAPSULE PO SCH (08:22)
[2022-03-30] MEDS: Aspirin Chewable 81 MG TAB PO SCH (08:23)
[2022-03-30] MEDS: Enoxaparin Sodium 40 MG/0.4 ML SYRINGE SC SCH (08:23)
[2022-03-30] MEDS ORDERED: Metoprolol Tartrate 50 MG TAB PO SCH (09:00)
[2022-03-30] MEDS ORDERED: Amlodipine 10 MG TAB PO SCH (09:00)
[2022-03-30 11:51] VITALS: BP 134/63; TEMP 97.4
== END 2022-03-30 14:10 | disposition home or self-care (01) | DRG 303 ==
LOC: ERS 20:01 → ERHOLD 23:10 → OBSVTOIN 23:10 → 2SW 03-29 10:56
PROVIDERS: ADMIT Family Medicine; ATTEND Family Medicine
DX: I25.119 Atherosclerotic heart disease of native coronary artery with unspecified angina pectoris (principal); Z68.41 Body mass index [BMI] 40.0-44.9, adult; E66.9 Obesity, unspecified; Z20.822 Contact with and (suspected) exposure to COVID-19; I10 Essential (primary) hypertension; E11.9 Type 2 diabetes mellitus without complications; E78.5 Hyperlipidemia, unspecified; E87.6 Hypokalemia; D64.9 Anemia, unspecified; Z91.14 Patient's other noncompliance with medication regimen; Z79.84 Long term (current) use of oral hypoglycemic drugs; Z95.5 Presence of coronary angioplasty implant and graft; Z79.82 Long term (current) use of aspirin; Z79.899 Other long term (current) drug therapy; Z98.52 Vasectomy status; Z90.09 Acquired absence of other part of head and neck; Z87.891 Personal history of nicotine dependence
CPT/HCPCS: 36415; 36416; 71045; 76705; 80048; 80053; 80061; 80076; 83036; 83690; 83735; 84443; 84484; 85025; 93005; 93306; J1650; J1940; U0002

== ENCOUNTER 2022-10-10 11:21 | Outpatient (CLI) | payer BC, MEDICARE ==
[2022-10-10 12:41] LABS: #Eosinphils 0.2 10x3/uL (0.0-0.5); #Monocytes 0.5 10x3/uL (0.0-1.1); #Neutrophils 2.8 10x3/uL (1.5-8.4); %Basophils 0.6 % (0.0-2.0); %Eosinophils 3.5 % (0.0-6.0); %Lymphocytes 30.5 % (18.0-47.0); %Monocytes 9.3 % (0.0-10.0); %Neutrophils 55.9 % (40.0-75.0); Hemoglobin 13.7 g/dL (13.5-17.5); Mean Corpuscular HGB CONC 33.2 g/dL (32.0-36.0); Mean Corpuscular Hemoglobin 29.6 pg (27.0-33.0); Mean Corpuscular Volume 89.2 fl (81.2-95.1); Mean Platelet Volume 10.7 fl (7.4-10.4); Platelet Count 136 10x3/uL (150-450); RBC Distribution Width 14.2 % (11.5-14.5); Red Blood Cell (RBC) Count 4.63 10x6/uL (4.32-5.72); White Blood Cell (WBC) Count 5.1 10x3/uL (3.5-10.5)
[2022-10-10 13:25] LABS: Anion Gap 14 mmol/L (10-20); BUN (Urea Nitrogen) 11 mg/dL (8.4-25.7); Calc. Creatinine Clearance 0 mL/min (70-130); Calcium 8.8 mg/dL (7.8-10.44); Carbon Dioxide 25 mmol/L (23-31); Chloride 106 mmol/L (98-107); Estimated GFR 101; Glucose 124 mg/dL (80-115); Potassium 4.6 mmol/L (3.5-5.1); Sodium 140 mmol/L (136-145)
== END 2022-10-10 11:22 | disposition home or self-care (01) ==
LOC: LABBT 11:21
PROVIDERS: ATTEND Orthopaedic Surgery
DX: Z01.812 Encounter for preprocedural laboratory examination (principal); M75.111 Incomplete rotator cuff tear or rupture of right shoulder, not specified as traumatic
CPT/HCPCS: 80048; 85025

== ENCOUNTER → 2022-10-13 | Day surgery (SDC) | payer BC ==
[2022-10-11 16:10] VITALS: BMI 40.3
[~2022-10-13] MED LIST changes: +CEFAZOLIN 2 GM VIAL ONE; +Dexamethasone 20 MG/5 ML VIAL ONE; +EPINEPHrine 1 MG/ML AMP ONE; +GLYCOPYRROLATE/PF 0.2 MG/ML VIAL ONE; +HYDROcodone/Acetaminophen 10/325 mg Tablet PO PRN; +Ketorolac Tromethamine 30 MG/ML VIAL IVP SCH; +Lidocaine 1% (PF) 30 ML VIAL ONE; -Lidocaine 1% MPF 2 ML VIAL ONE; +Lidocaine 1% PF 5 ML VIAL ONE; +NEOSTIGMINE 3 MG/3 ML SYR 3 MG/3 ML SYRINGE ONE; +Ondansetron PF 4 MG/2 ML Vial IVP PRN; +Ondansetron PF 4 MG/2 ML Vial ONE; +PROPOFOL 200 MG/20 ML VIAL ONE; +Promethazine HCl 25 MG/ML VIAL IM PRN; +Rocuronium Bromide 10 MG/ML (10ML VIAL) ONE; +Ropivacaine 0.2% 550 ML 550 ML NERVE BLCK SCH; +Ropivacaine 0.2% HCl/PF 20 ML ONE; +Ropivacaine 0.5% HCl/PF (150 MG/30 ML VIAL) ONE; -Sodium Bicarbonate 2.5 MEQ/5 ML VIAL ONE; +Sodium Chloride 0.9% 100 ML ONE; +Zolpidem Tartrate 5 MG TAB PO PRN; +fentaNYL 50 mcg/mL 1 mL Vial SLOW IVP PRN; +fentaNYL PF 100 MCG/2 ML SYRINGE ONE; +traMADol HCl 50 MG TAB PO PRN
== END | disposition home or self-care (01) ==
LOC: SDC 05:43
PROVIDERS: ATTEND Orthopaedic Surgery
PROC: 0LS30ZZ Reposition Right Upper Arm Tendon, Open Approach (ICD-10-PCS; principal; 2022-10-13)
PROC: 0LQ10ZZ Repair Right Shoulder Tendon, Open Approach (ICD-10-PCS; principal; 2022-10-13)
PROC: 0RHJ04Z Insertion of Internal Fixation Device into Right Shoulder Joint, Open Approach (ICD-10-PCS; principal; 2022-10-13)
DX: M75.101 Unspecified rotator cuff tear or rupture of right shoulder, not specified as traumatic (principal); S46.211A Strain of muscle, fascia and tendon of other parts of biceps, right arm, initial encounter; M19.011 Primary osteoarthritis, right shoulder; M75.41 Impingement syndrome of right shoulder; I10 Essential (primary) hypertension; E11.9 Type 2 diabetes mellitus without complications; E78.5 Hyperlipidemia, unspecified; Z79.02 Long term (current) use of antithrombotics/antiplatelets; Z79.82 Long term (current) use of aspirin; Z79.899 Other long term (current) drug therapy; Z88.5 Allergy status to narcotic agent; Z95.5 Presence of coronary angioplasty implant and graft; X58.XXXA Exposure to other specified factors, initial encounter
CPT/HCPCS: A4306; C1713; J0171; J1100; J2001; J2405; J2704; J2795; J3490

== ENCOUNTER 2023-03-01 18:38 | Emergency (ER) | payer BC, MEDICARE ==
[2023-03-01 20:27] LABS: #Eosinphils 0.1 thou/uL (0.0-0.7); #Monocytes 0.7 thou/uL (0.11-0.59); #Neutrophils 3.5 thou/uL (1.40-6.50); %Basophils 0.3 % (0.0-1.0); %Lymphocytes 26.4 % (21.0-51.0); %Monocytes 11.4 % (0.0-10.0); %Neutrophils 59.7 % (42.0-75.0); Hematocrit 39.6 % (42.0-52.0); Hemoglobin 13.7 g/dL (14.0-18.0); Mean Corpuscular HGB CONC 34.6 g/dL (32.0-36.0); Mean Corpuscular Hemoglobin 30.4 pg (27.0-31.0); Mean Platelet Volume 9.7 fL (7.4-10.4); Platelet Count 139 10x3/uL (130-400); RBC Distribution Width 13.9 % (11.5-14.5); White Blood Cell (WBC) Count 5.9 10x3/uL (4.8-10.8)
[2023-03-01 21:09] LABS: Bacteria/HPF None Seen HPF (None Seen); Bilirubin Negative (Negative); Blood, Urine Negative (Negative); CAUTI Indications for Culture Fever or rigors; Clarity Clear (Clear); Glucose, Urine (Dipstick) Normal (Negative); Ketone, Urine Negative (Negative); Leukocyte 250 Leu/uL (Negative); Nitrite Negative (Negative); Protein, Urine (Dipstick) Negative (Neg-Trace); RBC/HPF 0-3 HPF (0-3); Specific Gravity, Urine 1.021 (1.002-1.036); Squamous Epithelial 0-3 HPF (0-3); Urobilinogen Normal mg/dL (Less than 2); WBC/HPF 21-50 HPF (0-3); pH, Urine 5.5 (5.0-9.0)
[2023-03-01 21:12] LABS: Urine Culture Reflex Yes Yes
[2023-03-01 21:19] LABS: ALT (SGPT) 35 U/L (8-55); AST (SGOT) 25 U/L (5-34); Albumin 4.2 g/dL (3.4-4.8); Alkaline Phosphatase 96 U/L (40-110); Anion Gap 13 mmol/L (10-20); BUN (Urea Nitrogen) 16 mg/dL (8.4-25.7); Bilirubin, Total 1.2 mg/dL (0.2-1.2); CK (CPK) 112 U/L (30-200); Calc. Creatinine Clearance 0 mL/min (70-130); Calcium 9.1 mg/dL (7.8-10.44); Carbon Dioxide 21 mmol/L (23-31); Chloride 108 mmol/L (98-107); Estimated GFR 97; Globulin 2.5 g/dL (2.4-3.5); Glucose 175 mg/dL (80-115); Potassium 3.5 mmol/L (3.5-5.1); Protein, Total 6.7 g/dL (5.8-8.1); Sodium 138 mmol/L (136-145)
== END 2023-03-01 21:51 | disposition home or self-care (01) ==
LOC: ERS 18:38
DX: N39.0 Urinary tract infection, site not specified (principal); I25.10 Atherosclerotic heart disease of native coronary artery without angina pectoris; I10 Essential (primary) hypertension; Z79.82 Long term (current) use of aspirin
CPT/HCPCS: 36415; 71045; 80053; 81001; 82550; 85025; 87086

== ENCOUNTER 2025-03-19 21:23 | Inpatient (IN) | payer MEDICARE, BC ==
[2025-03-19 22:08] LABS: #Basophils Less than 0.03 10x3/uL (0.0-0.2); #Eosinophils 0.37 10x3/uL (0.0-0.7); #Monocytes 0.66 10x3/uL (0.11-0.59); #Neutrophils 3.94 10x3/uL (1.40-6.50); %Basophils 0.3 % (0.0-1.0); %Eosinophils 5.6 % (0.0-10.0); %Lymphocytes 24.5 % (21.0-51.0); %Monocytes 9.9 % (0.0-10.0); %Neutrophils 59.4 % (42.0-75.0); Hematocrit 41.5 % (42.0-52.0); Hemoglobin 14.0 g/dL (14.0-18.0); Mean Corpuscular Hemoglobin 29.4 pg (27.0-31.0); Mean Corpuscular Volume 87.2 fL (78.0-98.0); Platelet Count 139 10x3/uL (130-400); Red Blood Cell (RBC) Count 4.76 mill/uL (4.70-6.10); White Blood Cell (WBC) Count 6.64 10x3/uL (4.8-10.8)
[2025-03-19 22:29] LABS: ALT (SGPT) 37 U/L (Less than 45); AST (SGOT) 52 U/L (11-34); Albumin 3.9 g/dL (3.1-4.5); Alkaline Phosphatase 84 U/L (40-110); Anion Gap 15 mmol/L (10-20); BUN (Urea Nitrogen) 12 mg/dL (8.4-25.7); Bilirubin, Total 1.1 mg/dL (0.3-1.2); Calc. Creatinine Clearance 0 mL/min (70-130); Calcium 8.9 mg/dL (7.8-10.44); Carbon Dioxide 22 mmol/L (23-31); Chloride 108 mmol/L (98-107); Globulin 2.6 g/dL (2.4-3.5); Glucose 110 mg/dL (80-115); Potassium 4.1 mmol/L (3.5-5.1); Sodium 141 mmol/L (136-145)
[2025-03-19] MEDS ORDERED: Furosemide 20 MG (2 mL) VIAL ONE (23:32)
[2025-03-19] MEDS ORDERED: Nitroglycerin 2% Ointment 1 INCH/1 GM Packet ONE (23:33)
[2025-03-19] MEDS ORDERED: Aspirin Chewable 81 MG TAB ONE (23:33)
[2025-03-20] MEDS ORDERED: Nitroglycerin 0.4 MG TAB (25 Tab Bottle) SL PRN (00:38)
[2025-03-20] MEDS ORDERED: Dextrose 50% Abboject 50 ML SYRINGE SLOW IVP PRN (00:39)
[2025-03-20] MEDS ORDERED: Glucagon 1 MG/ML KIT IM PRN (00:39)
[2025-03-20] MEDS ORDERED: Acetaminophen 325 MG TAB PO PRN (00:40)
[2025-03-20] MEDS ORDERED: Calcium Carbonate 500 MG ChewTAB PO PRN (00:40)
[2025-03-20] MEDS ORDERED: Ondansetron PF 4 MG/2 ML Vial IVP PRN (00:45)
[2025-03-20 00:51] VITALS: BMI 44.9
[2025-03-20 02:17] LABS: Magnesium 1.9 mg/dL (1.6-2.6)
[2025-03-20] MEDS ORDERED: Electrolyte Replacement Protocol 1 EACH FS PRN (04:38)
[2025-03-20] MEDS: Famotidine 20 MG TAB PO SCH (08:50)
[2025-03-20] MEDS: Magnesium 2 GM/50 ML(in water) 2 GM in Premix 1 BAG IVPB SCH (08:51)
[2025-03-20] MEDS: Enoxaparin 40 MG (0.4 mL) SYRINGE SC SCH (17:02)
[2025-03-20] MEDS ORDERED: Communication Order-Pharmacy FS SCH (19:15)
[2025-03-20] MEDS: Aspirin 81 mg Enteric Coated Tablet PO SCH (19:51)
[2025-03-21 04:36] LABS: #Basophils Less than 0.03 10x3/uL (0.0-0.2); #Eosinophils 0.22 10x3/uL (0.0-0.7); #Monocytes 0.65 10x3/uL (0.11-0.59); #Neutrophils 4.12 10x3/uL (1.40-6.50); %Basophils 0.3 % (0.0-1.0); %Eosinophils 3.4 % (0.0-10.0); %Lymphocytes 21.6 % (21.0-51.0); %Monocytes 10.2 % (0.0-10.0); %Neutrophils 64.3 % (42.0-75.0); Hematocrit 43.3 % (42.0-52.0); Hemoglobin 14.4 g/dL (14.0-18.0); Mean Corpuscular Hemoglobin 29.5 pg (27.0-31.0); Mean Corpuscular Volume 88.7 fL (78.0-98.0); Platelet Count 141 10x3/uL (130-400); Red Blood Cell (RBC) Count 4.88 mill/uL (4.70-6.10); White Blood Cell (WBC) Count 6.40 10x3/uL (4.8-10.8)
[2025-03-21 04:50] LABS: Anion Gap 12 mmol/L (10-20); BUN (Urea Nitrogen) 15 mg/dL (8.4-25.7); Calc. Creatinine Clearance 175 mL/min (70-130); Calcium 8.8 mg/dL (7.8-10.44); Carbon Dioxide 25 mmol/L (23-31); Cardiac Risk 3.9 (Less than 4.5); Chloride 105 mmol/L (98-107); Cholesterol 118 mg/dl (< 200 Desired); Glucose 131 mg/dL (80-115); HDL Cholesterol 30 mg/dL (>60 Neg Risk); LDL Cholesterol, Calculated 64 mg/dL; Potassium 4.3 mmol/L (3.5-5.1); Sodium 138 mmol/L (136-145); Triglycerides 121 mg/dL (Less than 150)
[2025-03-21] MEDS: Ezetimibe 10 MG TAB PO SCH (06:08)
[2025-03-21] MEDS: Losartan 25 MG TAB PO SCH (06:08)
[2025-03-21] MEDS: Isosorbide Mononitrate 60 MG ER.TAB PO SCH (06:11)
[2025-03-21 07:25] VITALS: TEMP 97.5
[2025-03-21] MEDS ORDERED: EPINEPHrine 1 MG/10 ML Abboject SYRINGE ONE (08:50)
[2025-03-21] MEDS ORDERED: Heparin 10,000 UNITS/ 10 ML VIAL ONE (08:50)
[2025-03-21] MEDS ORDERED: Nitroglycerin 50 MG/250 ML BOT 250 ML ONE (08:50)
[2025-03-21] MEDS ORDERED: Adenosine 6 mg (2 mL) VIAL ONE (08:50)
[2025-03-21] MEDS ORDERED: PHENYLEPHRINE-NS 100 MCG/ML 10 ML SYRINGE ONE (08:50)
[2025-03-21] MEDS ORDERED: Lidocaine 1% (PF) 30 ML VIAL ONE (08:51)
[2025-03-21] MEDS ORDERED: Iopamidol 370 76% 100 ML VIAL ONE (11:13)
[2025-03-21 12:20] VITALS: BP 123/61
== END 2025-03-21 15:41 | disposition home or self-care (01) | DRG 287 ==
LOC: ERS 21:23 → 2NO 23:52 → OBSVTOIN 03-20 13:32
PROVIDERS: ADMIT Internal Medicine; ATTEND Internal Medicine
PROC: 4A023N7 Measurement of Cardiac Sampling and Pressure, Left Heart, Percutaneous Approach (ICD-10-PCS; principal; 2025-03-20)
PROC: B2111ZZ Fluoroscopy of Multiple Coronary Arteries using Low Osmolar Contrast (ICD-10-PCS; 2025-03-20)
PROC: B2161ZZ Fluoroscopy of Right and Left Heart using Low Osmolar Contrast (ICD-10-PCS; 2025-03-20)
PROC: 3E033XZ Introduction of Vasopressor into Peripheral Vein, Percutaneous Approach (ICD-10-PCS; 2025-03-21)
DX: R07.9 Chest pain, unspecified (principal); Z68.41 Body mass index [BMI] 40.0-44.9, adult; I25.10 Atherosclerotic heart disease of native coronary artery without angina pectoris; I10 Essential (primary) hypertension; E78.5 Hyperlipidemia, unspecified; E11.9 Type 2 diabetes mellitus without complications; G47.33 Obstructive sleep apnea (adult) (pediatric); I87.8 Other specified disorders of veins; E66.01 Morbid (severe) obesity due to excess calories; Z98.52 Vasectomy status; Z83.3 Family history of diabetes mellitus; Z95.5 Presence of coronary angioplasty implant and graft; Z88.5 Allergy status to narcotic agent; Z98.890 Other specified postprocedural states; Z82.3 Family history of stroke; Z79.84 Long term (current) use of oral hypoglycemic drugs; Z79.82 Long term (current) use of aspirin
CPT/HCPCS: 36415; 36416; 71045; 78451; 80048; 80053; 80061; 83036; 83735; 83880; 84484; 85025; 85379; 93005; 93010; 93458; 94760; 96365; 96374; 99152; A9502; C1769; C1894; G0378; J0153; J0165; J0461; J1644; J1650; J1815; J1940; J2250; J3010; J3475; J7030; Q0162; Q9967